=== PATIENT | male | born 2000 | race Caucasian/White ===

== ENCOUNTER 2019-03-04 21:59 | Emergency (ER) | payer SELFPAY ==
--- NOTE | 2019-03-04 22:21 | ED Physician Documentation ---
Low Back Pain - HISTORIAN Historian: patient - HPI Stated Complaint: Low back pain/right hip pain Chief Complaint: Low Back Pain/ Injury Additional Information: Patient presents to ED after slipping and falling in the shower tonight. Patient is escorted by custodial personnel. He states he had to have help getting up after he fell. He denies hitting his head. Onset: hours (1) Duration: continues in ED Context: fall Where: other (custodial) Other Injuries: back Severity: mild Quality: sharp Associated Symptoms: denies: fever Worsened By:: upright position Relieved By: supine - ROS CONST: no problems CVS/RESP: none EYES/ENT: none MS/SKIN/LYMPH: none Neuro/Psych: none GI/: denies: abdominal pain - PAST HX Past History: denies: back injury Surgeries/Procedures: none Allergies/Adverse Reactions: Allergies Allergy/AdvReac Type Severity Reaction Status Date / Time No Known Allergies Allergy Verified 03/04/19 22:18 Home Medications: Ambulatory Orders Medication Instructions Recorded NK 03/04/19 - SOCIAL HX Smoking History: non-smoker Alcohol Use: none Drug Use: none - FAMILY HX Family History: none - VITAL SIGNS Vital Signs: Vital Signs Temp Pulse Resp BP Pulse Ox 98.3 F 83 16 139/74 100 03/04/19 21:59 03/04/19 21:59 03/04/19 21:59 03/04/19 21:59 03/04/19 21:59 - REVIEWED ASSESSMENTS Nursing Assessment Reviewed: Yes Vitals Reviewed: Yes ED Results Lab/Radiology - Radiology Radiology Impressions: Report Submission Date: March 04, 2019 10:46:55 PM CDT Patient Study Name: JOSS DICKSON Date: March 04, 2019 10:23:17 PM CDT Modality Type: DX Gender: M Description: PELVIS AP 1 OR 2 VIEWS : 99 Institution: [facility] Physician: NAYAN GARCIA PELVIS AP 1 VIEWS History: Fall, lower back pain. Findings: The osseous structures of the pelvis are intact. The sacroiliac joints are normal. The proximal femurs are intact with femoral head is well seated within SPECT of acetabula. No soft tissue abnormality. Impression: 1. No acute osseous abnormality. Electronically signed on March 04, 2019 10:46:55 PM CDT by: Yamil Krause Report Submission Date: March 04, 2019 10:47:44 PM CDT Patient Study Name: JOSS DICKSON Date: March 04, 2019 10:23:17 PM CDT Modality Type: DX Gender: M Description: L SPINE 2 OR 3 VIEWS : 99 Institution: [facility] Physician: NAYAN GARCIA Lumbar spine, three views. History: fall, low back pain Findings: The vertebral body heights and vertebral body alignments are normal. There is no significant intervertebral disc space narrowing. Sacroiliac joints are normal. Impression: 1. No acute osseous abnormality. Electronically signed on March 04, 2019 10:47:44 PM CDT by: Yamil Krause - Orders Orders: ED Orders Category Date Time Status L SPINE 2 OR 3 VIEWS [RAD] Stat Exams 03/04/19 Ordered PELVIS AP 1 OR 2 VIEWS [RAD] Stat Exams 03/04/19 Ordered Low Back Pain/Injury - Physical Exam General Appearance: no acute distress, alert EENT: MARCELINO Neck: non-tender, painless ROM. No: vertebral point-tendernes Resp/CVS: chest non-tender, breath sounds nml, heart sounds nml, no resp. distress, lungs clear, reg. rate & rhythm Abdomen: non-tender Back: non-tender, other (tenderness along right posterior iliac crest ) Straight Leg Raising: Negative Left, Negative Right Neuro/Psych: oriented x3 Skin: warm/dry Extremities: non-tender, no edema Discharge Clincal Impression: Low back pain Qualifiers: Chronicity: acute Back pain laterality: right Sciatica presence: without sciatica Qualified Code(s): M54.5 - Low back pain Referrals: Primary Doctor,No [Primary Care Provider] - 2 Days Additional Instructions: 1. Tylenol and/or Ibuprofen as needed for pain 2. Apply ice to affected area as needed for comfort 3. Stay active. Do stretching exercises 4. Follow up with PCP within 1 week 5. Return to ER for new or worsening symptoms Condition: Stable Disposition: 01 HOME, SELF-CARE Decision to Admit: NO Date of Decison to Admit: 03/04/19 Decision Time: 22:52
--- NOTE | 2019-03-04 22:59 | Diagnostic Imaging Report ---
NAYAN GARCIA [facility] [address] [address] Report Submission Date: March 04, 2019 10:47:44 PM CDT Patient Study Name: JOSS DICKSON Date: March 04, 2019 10:23:17 PM CDT Modality Type: DX Gender: M Description: L SPINE 2 OR 3 VIEWS : 99 Institution: [facility] Physician: NAYAN GARCIA Lumbar spine, three views. History: fall, low back pain Findings: The vertebral body heights and vertebral body alignments are normal. There is no significant intervertebral disc space narrowing. Sacroiliac joints are normal. Impression: 1. No acute osseous abnormality. Electronically signed on March 04, 2019 10:47:44 PM CDT by: Yamil BO
--- NOTE | 2019-03-04 23:00 | Diagnostic Imaging Report ---
NAYAN GARCIA [facility] [address] [facility] [address] [place], [place]. [address] Report Submission Date: March 04, 2019 10:46:55 PM CDT Patient Study Name: JOSS DICKSON Date: March 04, 2019 10:23:17 PM CDT Modality Type: DX Gender: M Description: PELVIS AP 1 OR 2 VIEWS : 99 Institution: [facility] Physician: NAYAN GARCIA PELVIS AP 1 VIEWS History: Fall, lower back pain. Findings: The osseous structures of the pelvis are intact. The sacroiliac joints are normal. The proximal femurs are intact with femoral head is well seated within SPECT of acetabula. No soft tissue abnormality. Impression: 1. No acute osseous abnormality. Electronically signed on March 04, 2019 10:46:55 PM CDT by: Yamil BO
[2019-03-04 23:10] VITALS: BP 98/59
== END 2019-03-04 23:00 | disposition home or self-care (01) ==
LOC: ED 21:59
DX: M54.5 Low back pain (principal); W18.2XXA Fall in (into) shower or empty bathtub, initial encounter; Y93.E1 Activity, personal bathing and showering; Y92.142 Bathroom in prison as the place of occurrence of the external cause; Y99.8 Other external cause status
CPT/HCPCS: 72100; 72170; 99282; 99284